=== PATIENT | male | born 1995 | race Caucasian/White ===

== ENCOUNTER 2019-05-04 07:15 | Emergency (ER) | payer MEDICAID ==
[~2019-05-04] VITALS: Ht 177.8 cm; Wt 102.1 kg
[2019-05-04 07:22] VITALS: Ht 177.8 cm; Wt 102.1 kg
[2019-05-04 08:05] LABS: UA SPECIFIC GRAVITY >=1.030 (1.005-1.035); microscopic required? YES; urine erythrocyte 3+ (NEGATIVE)
[2019-05-04 08:30] VITALS: BP 141/80
== END 2019-05-04 08:37 | disposition home or self-care (01) ==
LOC: ED 07:15
PROVIDERS: Emergency Medicine
DX: N34.2 Other urethritis (principal)
CPT/HCPCS: 87491; 87591; J0696